=== PATIENT | female | born 1950 ===

== ENCOUNTER 2018-04-24 09:56 | Outpatient (CLI) | payer OTHER ==
[~2018-04-24 09:56] MED LIST: MACROBID 100 M100 MG PO; ULTRACET PO
== END 2018-04-24 09:59 | disposition home or self-care (01) ==
LOC: SONOGRAMA 09:56
DX: E04.1 Nontoxic single thyroid nodule (principal)

== ENCOUNTER 2018-05-14 07:55 | Outpatient (CLI) | payer OTHER ==
[2018-05-20] MEDS ORDERED: GABAPENTIN100 MG PO (10:13)
== END 2018-05-14 08:02 | disposition home or self-care (01) ==
LOC: LAB 07:55
DX: D64.89 Other specified anemias (principal); D68.8 Other specified coagulation defects; N39.0 Urinary tract infection, site not specified; R82.79 Other abnormal findings on microbiological examination of urine; R07.89 Other chest pain; D78.89 Other postprocedural complications of the spleen

== ENCOUNTER 2018-05-27 04:59 | Day surgery (SDC) | payer OTHER ==
[~2018-05-27 04:59] MED LIST changes: +GABAPENTIN100 MG PO
[2018-05-27] MEDS ORDERED: ULTRACET PO (10:22)
[2018-05-27] MEDS ORDERED: MACROBID 100 M100 MG PO (10:22)
== END 2018-05-27 12:40 | disposition home or self-care (01) ==
LOC: CIR.AMB 04:59
DX: N81.3 Complete uterovaginal prolapse (principal)